=== PATIENT | male | born 1960 | race Caucasian/White ===

== ENCOUNTER 2016-09-29 19:46 | Inpatient (IN) | payer MEDICARE, OTHER ==
[2016-09-29] MEDS ORDERED: SODIUM CHLORIDE 0.9% 500 ML IV STA (20:05)
[2016-09-29] MEDS ORDERED: methylPREDNISolone SOD SUCCI 125 MG/2 ML VIAL IV STA (20:05)
[2016-09-29] MEDS ORDERED: IPRATROPIUM-ALBUTEROL 3 ML NEB INHALATION STA (20:05)
[2016-09-29] MEDS ORDERED: LEVOFLOXACIN 750MG-D5W PMX 750 MG in DEXTROSE/WATER 1 150ML.BAG IVPB STA (20:05)
[2016-09-29] MEDS ORDERED: SODIUM CHLORIDE 0.9% 1,000 ML IV STA (20:05)
--- NOTE | 2016-09-29 20:11 | ED ---
SOB HPI - General Chief Complaint: Shortness of Breath Stated Complaint: EL Time Seen by Provider: 09/29/16 19:59 Source: patient Mode of arrival: wheelchair Limitations: no limitations - History of Present Illness Initial Comments: This 55-year-old white male presents with a complaint of shortness of breath. He states that this is much worse with any exertion. His felt lightheaded as well. He's had the symptoms for 4 days. He has felt feverish at times. He also has had a cough with yellowish and whitish production. He relates that he quit smoking 7 days ago. He has a long history of COPD and relates that it feels like bronchitis. He also has had some wheezing. He has been utilizing his albuterol HFA with some alleviation of symptoms. No other complaints or modifying factors. - Related Data Home Medications Medication Instructions Recorded Confirmed Albuterol Sulfate [Proair Hfa] 2 puff INHALATION RT-Q4H PRN 09/29/16 09/29/16 oxyCODONE HCL 15 mg PO Q6HR PRN 09/29/16 09/29/16 Allergies Allergy/AdvReac Type Severity Reaction Status Date / Time bupropion HCl Allergy Itching Verified 09/29/16 20:01 [From Wellbutrin] methadone Allergy Itching Verified 09/29/16 20:01 Review of Systems ROS Statement: Those systems with pertinent positive or pertinent negative responses have been documented in the HPI. ROS Other: All systems not noted in ROS Statement are negative. Past Medical History Past Medical History: COPD, Hyperlipidemia, Hypertension, Syncope Additional Past Medical History / Comment(s): NERUOPATHY, syncopal episodes History of Any Multi-Drug Resistant Organisms: None Reported Past Surgical History: Cholecystectomy Additional Past Surgical History / Comment(s): carpal tunnel release-bilateral Past Anesthesia/Blood Transfusion Reactions: No Reported Reaction Past Psychological History: Anxiety Smoking Status: Former smoker Past Alcohol Use History: None Reported Past Drug Use History: None Reported - Past Family History Father Family Medical History: Cancer Additional Family Medical History / Comment(s): lung ca General Exam - General Exam Comments Initial Comments: GENERAL: The patient is well nourished and well hydrated. VITAL SIGNS: Heart rate, blood pressure, respiratory rate reviewed as recorded in nurse's notes. EYES: Pupils are round and reactive. Extraocular movements are intact. No conjunctival / lid redness or swelling. ENT: No external evidence of injury, swelling, or ecchymosis. Airway is patent. Throat is clear. NECK: Nontender. No swelling or evidence of injury. No subcutaneous emphysema. Trachea is midline. No thyroid mass. HEART: Regular rate and rhythm. Good peripheral pulses. LUNGS/CHEST: There is wheezing noted bilaterally. No ecchymosis, subcutaneous emphysema, or tenderness. ABDOMEN: Abdomen soft without tenderness. No palpable masses or organomegaly. No peritoneal signs. No abdominal wall swelling or ecchymosis. EXTREMITIES: No extremity tenderness. Normal muscle tone and function. No thoracolumbar tenderness. NEUROLOGIC: Sensation is grossly intact. Cranial nerve exam reveals face is symmetrical, tongue is midline, speech is clear. SKIN: No abrasions or ecchymosis is noted. No induration or masses noted. PSYCHIATRIC: Alert and oriented. Appropriate behavior and judgment. Limitations: no limitations Course Vital Signs 09/29/16 09/29/16 09/29/16 19:48 20:09 20:11 Temperature 99.1 F Pulse Rate 96 90 90 Respiratory 28 H 20 20 Rate Blood Pressure 132/69 123/64 127/66 O2 Sat by Pulse 79 L 92 L 93 L Oximetry 09/29/16 09/29/16 09/29/16 20:15 20:26 20:30 Temperature Pulse Rate 86 88 Respiratory 24 20 Rate Blood Pressure 120/60 O2 Sat by Pulse 92 L Oximetry 09/29/16 09/29/16 09/29/16 20:41 20:46 21:11 Temperature Pulse Rate 86 93 92 Respiratory 20 16 Rate Blood Pressure 134/72 114/61 O2 Sat by Pulse 97 82 L Oximetry 09/29/16 09/29/16 09/29/16 21:15 21:26 21:40 Temperature Pulse Rate 95 88 96 Respiratory 20 Rate Blood Pressure 97/54 O2 Sat by Pulse 95 Oximetry 09/29/16 21:41 Temperature Pulse Rate 92 Respiratory 20 Rate Blood Pressure 108/63 O2 Sat by Pulse 93 L Oximetry Medical Decision Making - Medical Decision Making The patient was seen and examined. All diagnostics are reviewed. The EKG shows a normal sinus rhythm. There is some flattened T waves diffusely. The AL interval is 148, QRS is 76, and the QTc interval is 480. The patient was placed on a groundwater monitoring technician no ectopy is identified. The IV is started and he receives some Levaquin shows some Solu-Medrol intravenously. He received 2 DuoNeb breathing treatments with limited relief. He receives a continuous nebulized albuterol treatment with improved aeration. His oxygenation does improve. He is quite bronchospastic and has decreased aeration overall. Is felt as though he likely does have a COPD exacerbation. His chest x-ray showed some mild pleural reaction but no pneumonia. He likely has a bronchitis as well. Is felt that he has acute respiratory failure and would require admission to the hospital for further treatment. His laboratory showed a slight elevation of his troponin, decreased chloride, and a slight elevation of his BNP. The case is discussed with Dr. Higuera and he is agreeable to admission and pulmonology will be consulted. Approximately 30 minutes of critical care time was utilized in the treatment of the patient. - Lab Data Result diagrams: 09/29/16 20:15 09/29/16 20:15 Lab Results 09/29/16 09/29/16 09/29/16 Range/Units 20:15 20:15 20:15 WBC 10.6 (3.8-10.6) k/uL RBC 4.24 L (4.30-5.90) m/uL Hgb 12.4 L (13.0-17.5) gm/dL Hct 37.7 L (39.0-53.0) % MCV 88.8 (80.0-100.0) fL MCH 29.3 (25.0-35.0) pg MCHC 33.0 (31.0-37.0) g/dL RDW 15.4 (11.5-15.5) % Plt Count 254 (150-450) k/uL Neutrophils % 78 % Lymphocytes % 12 % Monocytes % 7 % Eosinophils % 1 % Basophils % 0 % Neutrophils # 8.2 H (1.3-7.7) k/uL Lymphocytes # 1.3 (1.0-4.8) k/uL Monocytes # 0.7 (0-1.0) k/uL Eosinophils # 0.1 (0-0.7) k/uL Basophils # 0.0 (0-0.2) k/uL Poikilocytosis Slight PT (9.0-12.0) sec INR (<1.1) APTT (22.0-30.0) sec Sodium 140 (137-145) mmol/L Potassium 3.9 (3.5-5.1) mmol/L Chloride 97 L (98-107) mmol/L Carbon Dioxide 31 H (22-30) mmol/L Anion Gap 12 mmol/L BUN 17 (9-20) mg/dL Creatinine 0.80 (0.66-1.25) mg/dL Est GFR (MDRD) Af Amer >60 (>60 ml/min/1.73 sqM) Est GFR (MDRD) Non-Af >60 (>60 ml/min/1.73 sqM) Glucose 118 H (74-99) mg/dL Plasma Lactic Acid Sher 1.1 (0.7-2.0) mmol/L Calcium 8.6 (8.4-10.2) mg/dL Magnesium (1.6-2.3) mg/dL Total Bilirubin 0.7 (0.2-1.3) mg/dL AST 23 (17-59) U/L ALT 40 (21-72) U/L Alkaline Phosphatase 76 (38-126) U/L Troponin I (0.000-0.034) ng/mL NT-Pro-B Natriuret Pep pg/mL Total Protein 6.5 (6.3-8.2) g/dL Albumin 3.6 (3.5-5.0) g/dL 09/29/16 09/29/16 09/29/16 Range/Units 20:15 20:15 20:15 WBC (3.8-10.6) k/uL RBC (4.30-5.90) m/uL Hgb (13.0-17.5) gm/dL Hct (39.0-53.0) % MCV (80.0-100.0) fL MCH (25.0-35.0) pg MCHC (31.0-37.0) g/dL RDW (11.5-15.5) % Plt Count (150-450) k/uL Neutrophils % % Lymphocytes % % Monocytes % % Eosinophils % % Basophils % % Neutrophils # (1.3-7.7) k/uL Lymphocytes # (1.0-4.8) k/uL Monocytes # (0-1.0) k/uL Eosinophils # (0-0.7) k/uL Basophils # (0-0.2) k/uL Poikilocytosis PT 10.8 (9.0-12.0) sec INR 1.1 (<1.1) APTT 26.5 (22.0-30.0) sec Sodium (137-145) mmol/L Potassium (3.5-5.1) mmol/L Chloride (98-107) mmol/L Carbon Dioxide (22-30) mmol/L Anion Gap mmol/L BUN (9-20) mg/dL Creatinine (0.66-1.25) mg/dL Est GFR (MDRD) Af Amer (>60 ml/min/1.73 sqM) Est GFR (MDRD) Non-Af (>60 ml/min/1.73 sqM) Glucose (74-99) mg/dL Plasma Lactic Acid Sher (0.7-2.0) mmol/L Calcium (8.4-10.2) mg/dL Magnesium 2.1 (1.6-2.3) mg/dL Total Bilirubin (0.2-1.3) mg/dL AST (17-59) U/L ALT (21-72) U/L Alkaline Phosphatase (38-126) U/L Troponin I 0.047 H* (0.000-0.034) ng/mL NT-Pro-B Natriuret Pep pg/mL Total Protein (6.3-8.2) g/dL Albumin (3.5-5.0) g/dL 09/29/16 Range/Units 20:15 WBC (3.8-10.6) k/uL RBC (4.30-5.90) m/uL Hgb (13.0-17.5) gm/dL Hct (39.0-53.0) % MCV (80.0-100.0) fL MCH (25.0-35.0) pg MCHC (31.0-37.0) g/dL RDW (11.5-15.5) % Plt Count (150-450) k/uL Neutrophils % % Lymphocytes % % Monocytes % % Eosinophils % % Basophils % % Neutrophils # (1.3-7.7) k/uL Lymphocytes # (1.0-4.8) k/uL Monocytes # (0-1.0) k/uL Eosinophils # (0-0.7) k/uL Basophils # (0-0.2) k/uL Poikilocytosis PT (9.0-12.0) sec INR (<1.1) APTT (22.0-30.0) sec Sodium (137-145) mmol/L Potassium (3.5-5.1) mmol/L Chloride (98-107) mmol/L Carbon Dioxide (22-30) mmol/L Anion Gap mmol/L BUN (9-20) mg/dL Creatinine (0.66-1.25) mg/dL Est GFR (MDRD) Af Amer (>60 ml/min/1.73 sqM) Est GFR (MDRD) Non-Af (>60 ml/min/1.73 sqM) Glucose (74-99) mg/dL Plasma Lactic Acid Sher (0.7-2.0) mmol/L Calcium (8.4-10.2) mg/dL Magnesium (1.6-2.3) mg/dL Total Bilirubin (0.2-1.3) mg/dL AST (17-59) U/L ALT (21-72) U/L Alkaline Phosphatase (38-126) U/L Troponin I (0.000-0.034) ng/mL NT-Pro-B Natriuret Pep 447 pg/mL Total Protein (6.3-8.2) g/dL Albumin (3.5-5.0) g/dL Disposition Clinical Impression: Elevated troponin, Acute exacerbation of chronic obstructive airways disease, Bronchitis, Respiratory failure, Bronchospasm, Hypochloremia, Tachypnea Disposition: ADMITTED IP TO THIS [facility] Condition: Fair Time of Disposition: 21:50 Decision Date: 09/29/16 Decision Time: 21:50
[2016-09-29 20:29] LABS: Basophils % (A) 0 %; Eosinophils # (A) 0.1 k/uL (0-0.7); Eosinophils % (A) 1 %; HCT 37.7 % (39.0-53.0); HDW 3.51; HGB 12.4 gm/dL (13.0-17.5); Luc # (Auto) 0.19; Luc % (Auto) 2; Lymphocytes # (A) 1.3 k/uL (1.0-4.8); Lymphocytes % (A) 12 %; MCH 29.3 pg (25.0-35.0); MCV 88.8 fL (80.0-100.0); Mean Platelet Volume 7.2; Monocytes # (A) 0.7 k/uL (0-1.0); Monocytes % (A) 7 %; Neutrophils # (A) 8.2 k/uL (1.3-7.7); Neutrophils % (A) 78 %; Poikilocytosis Slight; RBC 4.24 m/uL (4.30-5.90); RDW 15.4 % (11.5-15.5); WBC 10.6 k/uL (3.8-10.6); WBC (Perox) 10.92
[2016-09-29 20:40] LABS: ALT 40 U/L (21-72); AST 23 U/L (17-59); Alkaline Phosphatase 76 U/L (38-126); Anion Gap 12 mmol/L; Blood Urea Nitrogen 17 mg/dL (9-20); Calcium 8.6 mg/dL (8.4-10.2); Carbon Dioxide 31 mmol/L (22-30); Chloride 97 mmol/L (98-107); Glucose 118 mg/dL (74-99); INR 1.1 (<1.1); Non-African American GFR(MDRD) >60 (>60 ml/min/1.73 sqM); Partial Thromboplastin Time 26.5 sec (22.0-30.0); Potassium 3.9 mmol/L (3.5-5.1); Prothrombin Time 10.8 sec (9.0-12.0); Sodium 140 mmol/L (137-145); Total Bilirubin 0.7 mg/dL (0.2-1.3); Total Protein 6.5 g/dL (6.3-8.2)
--- NOTE | 2016-09-29 21:03 | XR ---
EXAMINATION TYPE: XR chest 1V portable DATE OF EXAM: 09/29/2016 8:56 PM COMPARISON: 06/12/2015 HISTORY: Cough and short of breath TECHNIQUE: Single frontal view of the chest is obtained. FINDINGS: Heart and mediastinum are normal. Lungs are clear of consolidation. There is slight blunti ng of the costophrenic angles. There are no hilar masses. There are chest leads. There is no gross he art failure. IMPRESSION: Mild pleural reaction at the lateral lung bases appears increased compared to old exam. No gross heart failure seen.
[2016-09-29] MEDS ORDERED: ALBUTEROL NEBULIZED 15 MG, IPRATROPIUM NEBULIZED 0.5 MG INHALATION ONE ×2 (21:07)
[2016-09-29] MEDS ORDERED: IPRATROPIUM-ALBUTEROL 3 ML NEB INHALATION PRN (22:05)
[2016-09-29] MEDS ORDERED: ASPIRIN 81 MG CHEW PO STA (22:09)
[2016-09-29] MEDS ORDERED: HEPARIN SODIUM,PORCINE 5,000 UNIT/ML 1 ML VIAL IV ONE (22:09)
[2016-09-29] MEDS ORDERED: HEPARIN SODIUM,PORCINE 5,000 UNIT/ML 1 ML VIAL IV PRN (22:09)
[2016-09-29] MEDS: HEPARIN SODIUM,PORCINE/D5W PMX 25,000 UNIT in DEXTROSE/WATER 1 500ML.BAG IV SCH (22:48)
[2016-09-29 23:11] VITALS: BMI 38.3
[2016-09-29] MEDS: NITROGLYCERIN OINT 1 INCH/GM PACKET TOPICAL SCH (23:32)
[2016-09-29] MEDS: methylPREDNISolone SOD SUCCI 125 MG/2 ML VIAL IV SCH (23:37)
[2016-09-30] MEDS ORDERED: INFLUENZA VACCINE (3YR+) 60 MCG/0.5 ML SYRINGE IM ONE (00:40)
[2016-09-30] MEDS ORDERED: PNEUMOCOCCAL VACC-PNEUMOVAX 23 25 MCG/0.5 ML VIAL IM ONE (00:40)
[2016-09-30 01:14] LABS: Appearance,Urine Clear (Clear); Bilirubin,Urine Negative (Negative); Glucose,Urine (UA) Negative (Negative); Ketones,Urine Negative (Negative); Leukocyte Esterase,Urine Negative (Negative); Nitrite,Urine Negative (Negative); Protein,Urine Negative (Negative); Specific Gravity,Urine 1.006 (1.001-1.035); UA Billing (MACRO vs. MICRO) CHEM; Urobilinogen,Urine <2.0 mg/dL (<2.0)
[2016-09-30] MEDS: NITROGLYCERIN OINT 1 INCH/GM PACKET TOPICAL SCH ×4 (02:20→23:08)
[2016-09-30 03:40] LABS: Mean Platelet Volume 7.8
[2016-09-30 03:58] LABS: Cholesterol 152 mg/dL (<200); HDL Cholesterol 28 mg/dL (40-60); Triglycerides 141 mg/dL (<150)
[2016-09-30 04:11] LABS: Troponin I 0.03 ng/mL (0.000-0.034)
[2016-09-30] MEDS: methylPREDNISolone SOD SUCCI 125 MG/2 ML VIAL IV SCH ×2 (05:34→12:26)
[2016-09-30 05:47] LABS: Glucose,Whole Blood 178 mg/dL (75-99)
[2016-09-30] MEDS: ALBUTEROL NEBULIZED 2.5 MG/3 ML INHALATION SCH ×2 (05:58→09:31)
[2016-09-30] MEDS: INSULIN LISPRO (humaLOG) 300 UNIT/3 ML VIAL SQ SCH ×4 (06:54→21:13)
[2016-09-30] MEDS ORDERED: BUDESONIDE 0.5 MG/2 ML NEBU INHALATION SCH (08:00)
[2016-09-30] MEDS ORDERED: ATENOLOL 25 MG TAB PO SCH (09:00)
[2016-09-30 09:06] LABS: Troponin I 0.025 ng/mL (0.000-0.034)
[2016-09-30] MEDS: ASPIRIN 325 MG TAB PO SCH (09:11)
[2016-09-30] MEDS: ATORVASTATIN 20 MG TAB PO SCH (09:11)
--- NOTE | 2016-09-30 09:14 | CONS ---
DATE OF CONSULTATION: CHIEF COMPLAINT: Shortness of breath. Fantasma is a 55-year-old gentleman with history of COPD and chronic pain who presented to hospital with shortness of breath, cough and sputum of several weeks duration. He has been diagnosed with COPD exacerbation and admitted to hospital for the same. At the time of my evaluation, he states that his symptoms have improved after receiving nebulizer therapy. His EKG showed sinus rhythm, poor R wave progression and nonspecific ST-T wave changes. One set of troponin is slightly elevated. Patient's symptoms are mild to moderate intensity, came on at rest without clear-cut exacerbating factors but nebulizers have gotten it better. Past medical history is significant for COPD and pain, chronic back pain. The patient is currently on albuterol and oxycodone. Allergic to METHADONE and WELLBUTRIN. Family history is negative for premature coronary artery disease. Social history is significant for smoking that he stopped 2 weeks ago. REVIEW OF SYSTEMS: HEENT: Unremarkable. CARDIAC: As described above. RESPIRATORY: As described above. GI: Negative. GENITOURINARY: Negative. ALLERGY/IMMUNOLOGY: Negative. SKIN: Negative. MUSCULOSKELETAL: Significant for arthritis. PSYCHOSOCIAL: Negative. ENDOCRINE: Plantar negative. HEMATOLOGIC: Negative. DERM: Negative. CONSTITUTIONAL: Negative. The rest of the system review is not relevant. On exam, he is comfortable at rest. Vital signs are stable. There is no jugular venous distention. Chest exam reveals occasional rhonchi bilaterally. Heart exam reveals first and second heart sounds. No gallop. No murmur. Abdomen is soft, nontender. Exam of extremities did not reveal any edema. Peripheral pulses are felt. ASSESSMENT: 1. Shortness of breath, probably secondary to chronic obstructive pulmonary disease exacerbation. 2. Elevated troponin could be due to a non-ST segment elevation myocardial infarction. PLAN: I am going to continue the nebulizers and antibiotics along with steroids at this time. I am going to continue the IV heparin, stop it tomorrow. I am going to obtain a D-dimer to rule out pulmonary embolism. I will obtain a 2-D echo to assess LV function and wall motion. Once the respiratory status becomes stable we will consider invasive angiography for further evaluation. In the meantime, will treat him with aspirin, nitrates and add statins.
[2016-09-30 09:17] LABS: Creatine Kinase MB 2.7 ng/mL (0.0-2.4)
--- NOTE | 2016-09-30 11:14 | ECHOF ---
Referral Reason:troponin elevation MEASUREMENTS -------- HEIGHT: 170.2 cm WEIGHT: 109.3 kg BP: 115/68 RVIDd: 3.7 cm (< 3.3) IVSd: 1.3 cm (0.6 - 1.1) LVIDd: 3.2 cm (3.9 - 5.3) LVPWd: 1.3 cm (0.6 - 1.1) IVSs: 2.2 cm LVIDs: 2.3 cm LVPWs: 1.5 cm LA Diam: 3.7 cm (2.7 - 3.8) LAESV Index (A-L): 26.01 ml/m Ao Diam: 3.6 cm (2.0 - 3.7) AV Cusp: 2.1 cm (1.5 - 2.6) MV EXCURSION: 14.837 mm (> 18.000) MV EF SLOPE: 113 mm/s (70 - 150) EPSS: 0.7 cm MV E Jaswinder: 0.88 m/s MV DecT: 164 ms MV A Jaswinder: 0.70 m/s MV E/A Ratio: 1.25 RAP: 5.00 mmHg RVSP: 15.98 mmHg FINDINGS -------- Sinus rhythm. This was a technically good study. There is mild concentric left ventricular hypertrophy. Overall left ventricular systolic function is normal with, an EF between 55 - 60 %. The right ventricle is mildly enlarged. Normal LA size by volume 22+/-6 ml/m2. The right atrium is normal in size. Aortic valve is trileaflet and is mildly thickened. Mild mitral annular calcification present. Mild mitral regurgitation is present. Trace tricuspid regurgitation present. Pulmonic valve appears structurally normal. The aortic root size is normal. The inferior vena cava is mildly dilated. There is no pericardial effusion. CONCLUSIONS -------- 1. Sinus rhythm. 2. Mild mitral regurgitation is present. 3. Trace tricuspid regurgitation present. 4. Pulmonic valve appears structurally normal. 5. The aortic root size is normal. 6. The inferior vena cava is mildly dilated. 7. There is no pericardial effusion. 8. This was a technically good study. 9. There is mild concentric left ventricular hypertrophy. 10. Overall left ventricular systolic function is normal with, an EF between 55 - 60 %. 11. The right ventricle is mildly enlarged. 12. Normal LA size by volume 22+/-6 ml/m2. 13. The right atrium is normal in size. 14. Aortic valve is trileaflet and is mildly thickened. 15. Mild mitral annular calcification present. [employer]: Lalito Mendoza RDCS
[2016-09-30 12:11] LABS: Glucose,Whole Blood 223 mg/dL (75-99)
[2016-09-30] MEDS ORDERED: IPRATROPIUM-ALBUTEROL 3 ML NEB INHALATION PRN ×2 (12:40→12:53)
--- NOTE | 2016-09-30 12:47 | P.CNPUL ---
History of Present Illness Consult date: 09/30/16 Requesting physician: Jarrett Higuera Reason for consult: COPD Chief complaint: Shortness of breath History of present illness: This is a very pleasant 55-year-old gentleman who follows with Dr. Garcia as his primary care physician. He has a history of hyperlipidemia, hypertension, peripheral neuropathy, anxiety, chronic pain syndrome. He also has a history of chronic obstructive pulmonary disease and was seen by Dr. Velez in our office approximately 1 year ago. He was ordered Advair and albuterol however the patient does not pay for Advair and has only been using albuterol in the outpatient setting. He did not return to the office concede did not quit smoking. He has smoked for greater than 35 years. He states now he quit approximately a week ago. He presented here to the hospital yesterday with complaints of increasing shortness of breath, cough and congestion. He denied any fever chills or night sweats. No chest pain palpitations lightheadedness or dizziness. He did have a minimum troponin leak and was initiated on a heparin drip and seen by cardiology. Two-dimensional echocardiogram did not reveal any significant abnormalities. Preserved left ventricular systolic function. His chest x-ray revealed no acute pulmonary process. There is some mild pleural reaction at the lung bases. He was hypoxic on admission at 79% O2 saturation on room air. T-max of 99.1. No leukocytosis. He is seen today in consultation on the selective care unit. He is awake and alert in no acute distress. He denies any worsening shortness of breath, cough or congestion. He did state he had some thick yellow sputum at home. He states he is breathing easier today as compared to yesterday. No chest pain, palpitations lightheadedness or dizziness. He is currently afebrile. Maintaining O2 saturations in the low 90s on 4 L/m per nasal cannula. He is dyspneic on minimal exertion. Review of Systems 14 point review of system was conducted. All negative other than as mentioned in HPI. Past Medical History Past Medical History: COPD, Hyperlipidemia, Hypertension, Syncope Additional Past Medical History / Comment(s): NERUOPATHY, syncopal episodes - patient states he would cough until he passed out but hasn't done it "in a long time." History of Any Multi-Drug Resistant Organisms: None Reported Past Surgical History: Cholecystectomy Additional Past Surgical History / Comment(s): carpal tunnel release-bilateral Past Anesthesia/Blood Transfusion Reactions: No Reported Reaction Past Psychological History: Anxiety Smoking Status: Former smoker Past Alcohol Use History: Occasional Past Drug Use History: None Reported - Past Family History Mother Family Medical History: COPD Father Family Medical History: Cancer Additional Family Medical History / Comment(s): lung ca Medications and Allergies Home Medications Medication Instructions Recorded Confirmed Type Albuterol Sulfate [Proair Hfa] 2 puff INHALATION RT-Q4H PRN 09/29/16 09/29/16 History oxyCODONE HCL 15 mg PO Q6HR PRN 09/29/16 09/29/16 History Allergies Allergy/AdvReac Type Severity Reaction Status Date / Time bupropion HCl Allergy Itching Verified 09/29/16 20:01 [From Wellbutrin] methadone Allergy Itching Verified 09/29/16 20:01 Physical Exam Vitals: Vital Signs Temp Pulse Pulse Resp BP BP Pulse Ox 09/30/16 11:39 96.8 F L 67 20 141/81 92 L 09/30/16 09:50 84 09/30/16 09:32 68 09/30/16 08:00 96.7 F L 67 20 126/75 92 L 09/30/16 06:04 74 09/30/16 05:59 66 09/30/16 04:00 96.9 F L 70 18 115/68 95 09/30/16 00:00 99.1 F 87 20 132/68 92 L 09/29/16 22:53 100 20 121/59 90 L 09/29/16 22:43 97 16 117/59 91 L 09/29/16 22:12 100 Intake and Output 09/29/16 09/30/16 09/30/16 22:59 06:59 14:59 Intake Total 396 180 Output Total 200 Balance 196 180 Intake: IV 260 Heparin Sodium,Porcine/ 160 D5w Pmx 25,000 unit In Dextrose/Water 1 500ml. bag @ 9 UNITS/KG/HR 20 mls/hr IV .Q24H [facility] Rx#: [id number] Sodium Chloride 0.9% 1, 100 000 ml @ 100 mls/hr IV . Q10H [facility] Rx#:[id number] Intake, IV Titration 136 Amount Heparin Sodium,Porcine/ 136 D5w Pmx 25,000 unit In Dextrose/Water 1 500ml. bag @ 9 UNITS/KG/HR 20 mls/hr IV .Q24H [facility] Rx#: [id number] Oral 180 Output: Urine 200 Other: Weight 111.13 kg 109.7 kg GENERAL EXAM: Alert, active, comfortable in no apparent distress. HEAD: Normocephalic. EYES: Normal reaction of pupils, equal size. NOSE: Clear with pink turbinates. THROAT: No erythema or exudates. NECK: No masses, no JVD. CHEST: No chest wall deformity. LUNGS: Equal air entry with bilateral wheezing, diminished.. CVS: S1 and S2 normal with no audible murmurs, regular rhythm. ABDOMEN: No hepatosplenomegaly, normal bowel sounds, no guarding or rigidity. SPINE: No scoliosis or deformity SKIN: No rashes CENTRAL NERVOUS SYSTEM: No focal deficits, tone is normal in all 4 extremities. Extremities: There is no significant peripheral edema. No clubbing, no cyanosis. Peripheral pulses are intact. Results - Laboratory Findings CBC and BMP: 09/30/16 03:30 09/29/16 20:15 PT/INR, D-dimer PT 10.8 sec (9.0-12.0) 09/29/16 20:15 INR 1.1 (<1.1) 09/29/16 20:15 D-Dimer 0.68 mg/L FEU (<0.60) H 09/30/16 08:17 Abnormal lab findings: Abnormal Labs 09/30/16 09/30/16 09/30/16 03:30 05:45 08:17 D-Dimer POC Glucose (mg/dL) 178 H CK-MB (CK-2) 2.7 H* HDL Cholesterol 28 L 09/30/16 09/30/16 08:17 12:06 D-Dimer 0.68 H POC Glucose (mg/dL) 223 H CK-MB (CK-2) HDL Cholesterol - Diagnostic Findings Chest x-ray: image reviewed Assessment and Plan Plan: Impression: #1 Acute exacerbation of chronic obstructive pulmonary disease, complicated by purulent tracheobronchitis. #2 Chronic tobacco dependence. #3 Obesity. #4 Hypertension. #5 Hyperlipidemia. #6 Chronic pain syndrome. Plan: The patient was seen and evaluated by Dr. Orantes. His chest x-ray and labs were reviewed. We'll go ahead and continue with bronchodilators, Pulmicort and Perforomist inhalations, IV Solu-Medrol and empiric antibiotics in the form of Levaquin. He is educated regarding the importance of complete smoking cessation. He states he did quit approximately 1 week ago and at other times and reported quitting up to a month ago. A NicoDerm patch will be offered. He is encouraged to keep her follow-up appointment in our office. He is only been on albuterol in the outpatient setting. He really does need to be on maintenance medications including inhaled corticosteroids and long-acting beta agonists. We will increase his activity as tolerated. We'll continue to follow make further recommendations based on his clinical status.
[2016-09-30] MEDS: IPRATROPIUM-ALBUTEROL 3 ML NEB INHALATION SCH ×2 (12:57→20:11)
[2016-09-30] MEDS: BUDESONIDE 1 MG/2 ML NEBU INHALATION SCH ×2 (16:06→20:11)
--- NOTE | 2016-09-30 16:29 | HP ---
DATE OF ADMISSION: Patient is a 55-year-old with a history of COPD; quit smoking about a week ago, he says. He came in with complaints of shortness of breath which started about 4 days ago with cough, yellowish sputum production. Denied any fever or chills. Patient's chest x-ray did not show any pneumonic process. Patient was hypoxic with saturations going to 79% in the ER. Patient is saturating in low 90s at this point of time on 4 L of oxygen at this point of time. Patient denied any fever or chills. Patient's chest x-ray did not show any pneumonic process. Patient does not use any oxygen at home. Patient denied any chest pain to me, denied any lightheadedness. REVIEW OF SYSTEMS: CONSTITUTIONAL: No fever, no malaise, no fatigue. HEENT: No recent visual problems or hearing problems. Denied any sore throat. CARDIOVASCULAR: No chest pain, orthopnea, PND, no palpitations, no syncope. PULMONARY: As described in HPI. Patient denied any orthopnea, PND. GASTROINTESTINAL: No diarrhea, no nausea, no vomiting, no abdominal pain. Normoactive bowel sounds. NEUROLOGICAL: No headaches, no weakness, no numbness. HEMATOLOGICAL: Denies any bleeding or petechiae. GENITOURINARY: Denies any burning micturition, frequency, or urgency. MUSCULOSKELETAL/RHEUMATOLOGICAL: Denies any joint pain, swelling, or any muscle pain. ENDOCRINE: Denies any polyuria or polydipsia. The rest of the 14 point review of systems is negative. Past medical history is significant for: 1. COPD. 2. Hyperlipidemia. 3. Hypertension. 4. Syncopal episodes in the past. 5. Cholecystectomy. SOCIAL HISTORY: Patient says he is a former smoker; quit smoking about a week ago. Denied any alcohol abuse or any drug abuse. FAMILY HISTORY: Significant for lung cancer in the family. Home medications include albuterol and oxycodone. ALLERGIES: BUPROPION and METHADONE. PHYSICAL EXAMINATION: VITAL SIGNS: Temperature 96.8, pulse of 67, respiratory rate of 20. Blood pressure is 141/81. Saturating at 92% on 4 L of oxygen by nasal cannula. GENERAL: The patient is alert and oriented x3, not in any acute distress. Well developed, well nourished. HEENT: Pupils are round and equally reacting to light. EOMI. No scleral icterus. No conjunctival pallor. Normocephalic, atraumatic. No pharyngeal erythema. No thyromegaly. CARDIOVASCULAR: S1 and S2 present. No murmurs, rubs, or gallops. PULMONARY: Decreased air entry into bilateral lung acosta. Significant expiratory wheezing was appreciated. No crackles were appreciated. ABDOMEN: Soft, nontender, nondistended, normoactive bowel sounds. No palpable organomegaly. MUSCULOSKELETAL: No joint swelling or deformity. EXTREMITIES: No cyanosis, clubbing, or pedal edema. NEUROLOGICAL: Gross neurological examination did not reveal any focal deficits. SKIN: No rashes. LABORATORY DATA: CBC, CMP are essentially within normal limits except for mildly elevated troponin of 0.047 on admission and second one being 0.025, because of which Cardiology evaluated the patient and patient underwent echocardiogram, which did not show any wall motion abnormalities. ASSESSMENT AND PLAN: 1. Acute exacerbation of chronic obstructive pulmonary disease and acute hypercapnic respiratory failure secondary to chronic obstructive pulmonary disease exacerbation without any pneumonia. Patient does have tracheobronchitis. Patient was started on doxycycline. Levofloxacin was discontinued by me. Patient was started on systemic steroids, inhalational treatments. 2. Elevated troponin secondary to hypoxemia without any acute coronary ( ). 3. Obesity. 4. Hypertension. 5. Hyperlipidemia. 6. Chronic pain syndrome. PLAN: As mentioned above.
[2016-09-30 16:52] LABS: Glucose,Whole Blood 204 mg/dL (75-99)
[2016-09-30] MEDS: DOXYCYCLINE 50 MG CAP PO SCH ×2 (17:22→20:31)
[2016-09-30] MEDS ORDERED: PROMETHAZINE 6.25MG/5ML 147.5 MG/118 ML BOTTLE PO PRN (17:40)
[2016-09-30] MEDS ORDERED: PROMETHAZ-COD 6.25-10 MG/5 ML 5 ML CUP PO PRN (17:40)
[2016-09-30 17:44] VITALS: RESP 18
[2016-09-30] MEDS ORDERED: LEVOFLOXACIN 750MG-D5W PMX 750 MG in DEXTROSE/WATER 1 150ML.BAG IVPB SCH (20:00)
[2016-09-30] MEDS: FORMOTEROL FUMARATE 20 MCG/2 ML NEBU INHALATION SCH (20:11)
[2016-09-30] MEDS: HEPARIN SODIUM,PORCINE/D5W PMX 25,000 UNIT in DEXTROSE/WATER 1 500ML.BAG IV SCH (20:29)
[2016-09-30] MEDS: methylPREDNISolone SOD SUCCI 40 MG/ML 1 ML VIAL IV SCH (20:32)
[2016-09-30 21:02] LABS: Glucose,Whole Blood 159 mg/dL (75-99)
[2016-10-01] MEDS: guaiFENesin-DM 100-10MG/5ML 10 ML CUP PO PRN ×2 (00:20→08:22)
[2016-10-01] MEDS: NITROGLYCERIN OINT 1 INCH/GM PACKET TOPICAL SCH ×2 (02:31→12:28)
[2016-10-01 06:22] LABS: Glucose,Whole Blood 175 mg/dL (75-99)
[2016-10-01] MEDS: INSULIN LISPRO (humaLOG) 300 UNIT/3 ML VIAL SQ SCH ×2 (06:31→12:28)
[2016-10-01 06:36] LABS: Mean Platelet Volume 7.2
[2016-10-01] MEDS: IPRATROPIUM-ALBUTEROL 3 ML NEB INHALATION SCH ×2 (07:35→11:34)
[2016-10-01] MEDS: FORMOTEROL FUMARATE 20 MCG/2 ML NEBU INHALATION SCH (07:35)
[2016-10-01] MEDS: BUDESONIDE 1 MG/2 ML NEBU INHALATION SCH (07:35)
[2016-10-01] MEDS: ASPIRIN 325 MG TAB PO SCH (08:22)
[2016-10-01] MEDS: DOXYCYCLINE 50 MG CAP PO SCH (08:22)
[2016-10-01] MEDS: methylPREDNISolone SOD SUCCI 40 MG/ML 1 ML VIAL IV SCH (08:22)
[2016-10-01] MEDS: ATORVASTATIN 20 MG TAB PO SCH (08:23)
[2016-10-01 10:05] VITALS: TEMP 97.1
--- NOTE | 2016-10-01 10:56 | P.PN ---
Subjective Principal diagnosis: COPD exacerbation This is a pleasant 55-year-old gentleman with history of hyperlipidemia, hypertension, peripheral neuropathy, anxiety, COPD, nicotine dependence, who presented to the hospital with symptoms of increased shortness of breath with associated cough and congestion. Patient did have a mild troponin leak, not suggestive of acute coronary syndrome, likely secondary to oxygen supply and demand mismatch. Echo did not reveal any significant abnormalities and LV function was preserved. Patient was quite hypoxic on admission here with an O2 saturation of 79%, associated with low-grade temperature of 99.9. Patient states he has been coughing up some yellow sputum , and this is much improved on examination today. Blood pressure this morning 142/80 with heart rate in the 60s, O2 saturation 91% on 2 L. On room air the patient's oxygen saturation is 85%. He does feel that his breathing is improved today. Objective - Vital Signs Vital signs: Vital Signs Temp 97.1 F L 10/01/16 08:00 Pulse 61 10/01/16 08:00 Resp 18 10/01/16 08:00 BP 142/79 10/01/16 08:00 Pulse Ox 85 L 10/01/16 08:00 Intake & Output 09/30/16 10/01/16 10/01/16 18:59 06:59 18:59 Intake Total 1660.1 2420 240 Output Total 500 Balance 1160.1 2420 240 Weight 110 kg Intake: IV 1280.1 20 0.9% NS FLUSH 10 mL 20 Heparin Sodium,Porcine/ 80.1 D5w Pmx 25,000 unit In Dextrose/Water 1 500ml. bag @ 9 UNITS/KG/HR 20 mls/hr IV .Q24H HARITHA Rx#: [id number] Sodium Chloride 0.9% 1, 1200 000 ml @ 100 mls/hr IV . Q10H STA Rx#:[id number] Oral 380 2400 240 Output: Urine 500 Other: # Voids 4 - Exam PHYSICAL EXAMINATION: HEENT: Head is atraumatic, normocephalic. Pupils equal, round. Neck is supple. There is no elevated jugular venous pressure. HEART EXAMINATION: Heart S1, S2 normal. No murmur or gallop heard. CHEST EXAMINATION: Lungs reveal bilateral wheezing with decreased air exchange ABDOMEN: Soft, nontender. Bowel sounds are heard. No organomegaly noted. EXTREMITIES: 2+ peripheral pulses with no evidence of peripheral edema and no calf tenderness noted. NEUROLOGIC patient is awake, alert and oriented -3. . - Labs CBC & Chem 7: 10/01/16 06:12 09/29/16 20:15 Labs: Abnormal Lab Results - Last 24 Hours (Table) 09/30/16 09/30/16 09/30/16 Range/Units 12:06 16:43 20:58 POC Glucose (mg/dL) 223 H 204 H 159 H (75-99) mg/dL 10/01/16 Range/Units 06:21 POC Glucose (mg/dL) 175 H (75-99) mg/dL Assessment and Plan (1) Hypertension Status: Acute (2) Hyperlipidemia Status: Acute (3) Acute exacerbation of chronic obstructive airways disease Status: Acute (4) Bronchitis Status: Acute (5) Elevated troponin Status: Acute Plan: From cardiology's perspective, we'll follow this patient with you now on an as- needed basis only, please don't hesitate to call with any questions. We will make a follow-up appointment in the office post discharge. Troponin elevation not suggestive of acute coronary syndrome, likely secondary to oxygen supply and demand mismatch. DNP note has been reviewed, I agree with a documented findings and plan of care. Patient was seen and examined.
[2016-10-01 12:01] VITALS: BP 143/89; PULSE 66
[2016-10-01 12:25] LABS: Glucose,Whole Blood 154 mg/dL (75-99)
--- NOTE | 2016-10-02 10:15 | DS ---
DATE OF ADMISSION: 09/29/2016 DATE OF DISCHARGE: 10/01/2016 Patient is admitted with COPD exacerbation. The patient is otherwise clinically doing well. Patient wanted to be discharged. Patient was cleared by other consultations. Patient will be discharged today in stable medical conditions to home. Nicotine cessation counseling was provided. The patient was seen and examined on the day of discharge. Vitals are stable. PHYSICAL EXAMINATION: GENERAL: The patient is alert and oriented x3, not in any acute distress. Well developed, well nourished. HEENT: Pupils are round and equally reacting to light. EOMI. No scleral icterus. No conjunctival pallor. Normocephalic, atraumatic. No pharyngeal erythema. No thyromegaly. CARDIOVASCULAR: S1 and S2 present. No murmurs, rubs, or gallops. PULMONARY: Chest is clear to auscultation, no wheezing or crackles. ABDOMEN: Soft, nontender, nondistended, normoactive bowel sounds. No palpable organomegaly. MUSCULOSKELETAL: No joint swelling or deformity. EXTREMITIES: No cyanosis, clubbing, or pedal edema. NEUROLOGICAL: Gross neurological examination did not reveal any focal deficits. SKIN: No rashes. FINAL DIAGNOSES: 1. Acute exacerbation of chronic obstructive pulmonary disease leading to acute hypercapnic respiratory failure. 2. Mild troponin elevation secondary to hypoxemia. 3. Obesity. 4. Hypertension. 5. Hyperlipidemia. 6. Chronic pain syndrome. Discharge medications, please refer to my depart summary for the details of the discharge medications. Patient will follow with Dr. Garcia in one week; Dr. Real Moore on the 18 of October at 4:15. Activity as tolerated. Cardiac diet. I spent greater than 35 minutes in total discharge process.
== END 2016-10-01 14:19 | disposition home or self-care (01) | DRG 190 ==
LOC: EC 19:46 → 6SEL 21:50
PROVIDERS: ADMIT Internal Medicine; ATTEND Internal Medicine
DX: J44.0 Chronic obstructive pulmonary disease with (acute) lower respiratory infection (principal); J96.01 Acute respiratory failure with hypoxia; J96.02 Acute respiratory failure with hypercapnia; I24.8 Other forms of acute ischemic heart disease; J20.9 Acute bronchitis, unspecified; J44.1 Chronic obstructive pulmonary disease with (acute) exacerbation; E87.8 Other disorders of electrolyte and fluid balance, not elsewhere classified; E78.5 Hyperlipidemia, unspecified; F17.200 Nicotine dependence, unspecified, uncomplicated; G89.4 Chronic pain syndrome; I10 Essential (primary) hypertension; Z82.5 Family history of asthma and other chronic lower respiratory diseases; Z88.5 Allergy status to narcotic agent
CPT/HCPCS: 36415; 71010; 80053; 80061; 81003; 82550; 82553; 83605; 83735; 83880; 84484; 85025; 85049; 85379; 85610; 85730; 87040; 90686; 90732; 93005; 93306; 94640; 94645; 96361; 96365; 96375; 96376; 99285

== ENCOUNTER → 2017-01-24 | Outpatient (CLI) | payer MEDICARE, OTHER ==
--- NOTE | 2017-01-24 13:07 | XR ---
EXAMINATION TYPE: XR foot complete bilateral DATE OF EXAM ORDERED: 01/24/2017 HISTORY: M79.2,M79.6 rina foot pain. COMPARISON: None. FINDINGS: There are mild degenerative changes in the first MTP joints bilaterally. Slightly worse on the right than the left. No acute fracture, dislocation or other acute osseous lesion is seen. There are both plantar and Achilles spurs seen on the left calcaneus. There is a small Achilles spur noted on the right. IMPRESSION: 1. NO ACUTE OSSEOUS LESION. 2. DEGENERATIVE CHANGE. 3. CALCANEAL SPURS.
== END | disposition home or self-care (01) ==
LOC: RADXRMAIN 12:46
PROVIDERS: ATTEND Internal Medicine
DX: M77.32 Calcaneal spur, left foot (principal); M79.2 Neuralgia and neuritis, unspecified; M25.872 Other specified joint disorders, left ankle and foot; M25.871 Other specified joint disorders, right ankle and foot; M79.609 Pain in unspecified limb